=== PATIENT | male | born 1940 | race Caucasian/White ===

== ENCOUNTER 2017-11-06 17:01 | Emergency (ER) | payer MEDICARE, OTHER ==
[~2017-11-06] VITALS: Ht 182.9 cm; Wt 77.5 kg
[2017-11-06] MEDS ORDERED: HYDROcodone/APAP 5/325 TABLET PO ONE (18:30)
[2017-11-06] MEDS ORDERED: DIPH,PERTUSS(ACELL),TET VAC/PF 0.5 ML IM-VACC ONE ×2 (18:30→19:02)
[2017-11-06] MEDS ORDERED: HYDROcodone/APAP 5/325 TABLET ONE (19:02)
[2017-11-06] MEDS ORDERED: BACITRACIN ZINC OINT 500U/GM, 0.9 GM ONE (19:21)
[2017-11-06 20:15] VITALS: BP 163/87
== END 2017-11-06 21:07 | disposition home or self-care (01) ==
LOC: ED 21:01
DX: S59.291A Other physeal fracture of lower end of radius, right arm, initial encounter for closed fracture (principal); S00.81XA Abrasion of other part of head, initial encounter; I10 Essential (primary) hypertension; W10.8XXA Fall (on) (from) other stairs and steps, initial encounter; Y93.89 Activity, other specified; Y92.098 Other place in other non-institutional residence as the place of occurrence of the external cause; Y99.8 Other external cause status
CPT/HCPCS: 70450; 72125; 90471; 90715

== ENCOUNTER 2020-03-03 11:54 | Inpatient (IN) | payer OTHER ==
[~2020-03-03] VITALS: Ht 182.9 cm; Wt 76.7 kg
--- NOTE | 2020-03-03 12:09 | NUR ---
PT BIB BY [facility] FOR BILAT FOOT PAIN AND SWELLING. PT SAYS "IT HURTS TO STAND ON MY FEET AND WALK. I COULDNT GET OFF MY COUCH THIS MORNING". PT DENIES ANY CARDIAC OR KIDNEY HISTORY. HX: PARKINSONS, HTN EKG COMPLETE. PT CONNECTED TO TILE GRINDER AND PULSE OX
[2020-03-03 12:26] LABS: BASOPHILS # (AUTO) 0.01 x10^3/uL (0-0.1); BASOPHILS % (AUTO) 0 % (0-1); EOSINOPHILS # (AUTO) 0.04 x10^3/uL (0-0.4); EOSINOPHILS % (AUTO) 1 % (1-7); LYMPHOCYTES # (AUTO) 0.86 x10^3/uL (1-3.4); LYMPHOCYTES % (AUTO) 11 % (22-44); MD NO; MEAN CORPUSCULAR HEMOGLOBIN 30.5 pg (27.5-34.5); MEAN CORPUSCULAR HGB CONC 33.1 g/dL (33.2-36.2); MEAN CORPUSCULAR VOLUME 92.2 fL (81-97); MEAN PLATELET VOLUME 7.6 fL (7.4-10.4); MONOCYTES # (AUTO) 0.81 x10^3/uL (0.2-0.8); MONOCYTES % (AUTO) 10 % (2-9); NEUTROPHILS # (AUTO) 6.23 x10^3/uL (1.8-6.8); NEUTROPHILS % (AUTO) 78 % (42-75); PLATELET COUNT 243 x10^3/uL (130-400); RED BLOOD COUNT 4.09 x10^6/uL (4.38-5.82); RED CELL DISTRIBUTION WIDTH 15.5 % (9.4-14.8)
--- NOTE | 2020-03-03 12:31 | NUR ---
pt need to reposition for the US exam - still waiting for help - Us delay
[2020-03-03 12:38] LABS: ALBUMIN 3.4 g/dL (3.4-5.0); ANION GAP 4 mmol/L (5-15); CALCIUM 8.7 mg/dL (8.5-10.1); CHLORIDE 107 mmol/L (98-107)
[2020-03-03 12:44] LABS: ALANINE AMINOTRANSFERASE 47 U/L (12-78); ALKALINE PHOSPHATASE 80 U/L (45-117); BILIRUBIN,TOTAL 0.6 mg/dL (0.2-1.0); CREATININE 1.18 mg/dL (0.7-1.3); TOTAL PROTEIN 6.9 g/dL (6.4-8.2); TROPONIN I < 0.015 ng/mL (0.000-0.045)
[2020-03-03] MEDS ORDERED: FUROSEMIDE 40 MG/4 ML IV ONE (13:00)
--- NOTE | 2020-03-03 13:08 | NUR ---
RN IS IN WITH TECH HELPING REPOSITION PT
[2020-03-03] MEDS ORDERED: FUROSEMIDE 20 MG/2 ML ONE (13:09)
[2020-03-03] MEDS ORDERED: ONDANSETRON ODT 4 MG PO PRN (13:30)
[2020-03-03] MEDS ORDERED: ONDANSETRON 2MG/ML, 2ML IVPush PRN (13:30)
--- NOTE | 2020-03-03 13:42 | NUR ---
PT RESTING IN [facility]. URINAL PROVIDED. EDUCATED ON PLAN OF CARE
[2020-03-03] MEDS ORDERED: LISINOPRIL (13:43)
--- NOTE | 2020-03-03 14:01 | NUR ---
THROUGHPUT: TRANSFER DECLINED BY TIFFANY ([facility]) & NICOLETTE ([facility]), [employer] FAXED, EMAIL SENT & PSN PLACED IN FOLDER WITH FAX CONFIRMATION.
[2020-03-03 15:52] VITALS: BP 164/89
[2020-03-03] MEDS: ENOXAPARIN 40 MG/0.4 ML SQ SCH (16:46)
[2020-03-03 18:12] VITALS: BP 179/75
[2020-03-03] MEDS: CARVEDILOL 6.25 MG TABLET PO SCH (18:14)
[2020-03-03] MEDS ORDERED: FURO40TA6 PO (19:39)
[2020-03-03] MEDS ORDERED: RASA1TAB PO (19:39)
[2020-03-03] MEDS ORDERED: CARB1TAB22 PO (19:39)
[2020-03-03] MEDS ORDERED: LISI10TA2 PO (19:39)
[2020-03-03] MEDS ORDERED: TRAZ300T2 PO (19:39)
[2020-03-03] MEDS ORDERED: POTA99TA24 PO (19:39)
[2020-03-03 19:49] VITALS: BP 156/85
[2020-03-03 20:30] VITALS: BP 158/81
[2020-03-03 21:34] VITALS: BP 156/85
[2020-03-04 00:40] VITALS: BP 154/87
[2020-03-04] MEDS: ACETAMINOPHEN 325 MG TABLET PO PRN ×2 (00:48→09:53)
[2020-03-04] MEDS ORDERED: DIPHENHYDRAMINE 25 MG CAPSULE PO ONE (01:00)
[2020-03-04 05:10] VITALS: BP_SYST 128; BP_SYST 137; BP_DIAS 56; BP_DIAS 62
[2020-03-04] MEDS: CARVEDILOL 6.25 MG TABLET PO SCH ×2 (05:12→21:00)
[2020-03-04 06:22] LABS: BASOPHILS % (AUTO) 0 % (0-1); EOSINOPHILS # (AUTO) 0.02 x10^3/uL (0-0.4); EOSINOPHILS % (AUTO) 0 % (1-7); LYMPHOCYTES # (AUTO) 0.98 x10^3/uL (1-3.4); LYMPHOCYTES % (AUTO) 8 % (22-44); MD NO; MEAN CORPUSCULAR HEMOGLOBIN 30.5 pg (27.5-34.5); MEAN CORPUSCULAR VOLUME 92.3 fL (81-97); MEAN PLATELET VOLUME 7.8 fL (7.4-10.4); MONOCYTES # (AUTO) 1.14 x10^3/uL (0.2-0.8); MONOCYTES % (AUTO) 9 % (2-9); NEUTROPHILS # (AUTO) 10.43 x10^3/uL (1.8-6.8); NEUTROPHILS % (AUTO) 83 % (42-75); PLATELET COUNT 232 x10^3/uL (130-400); RED BLOOD COUNT 4.29 x10^6/uL (4.38-5.82); RED CELL DISTRIBUTION WIDTH 14.6 % (9.4-14.8)
[2020-03-04 06:26] LABS: ANION GAP 6 mmol/L (5-15); CALCIUM 8.6 mg/dL (8.5-10.1); CHLORIDE 107 mmol/L (98-107)
[2020-03-04 06:28] LABS: CREATININE 1.07 mg/dL (0.7-1.3)
[2020-03-04 06:45] VITALS: BP 175/83
[2020-03-04 09:51] VITALS: BP 129/73
[2020-03-04 12:18] VITALS: BP 161/70
[2020-03-04] MEDS: CARBIDOPA/LEVODOPA 25 MG/100 MG TABLET PO SCH ×2 (16:00→21:00)
[2020-03-04] MEDS: ENOXAPARIN 40 MG/0.4 ML SQ SCH (16:00)
[2020-03-04] MEDS ORDERED: HALOPERIDOL 5 MG/ML IM PRN (17:00)
[2020-03-04 18:52] LABS: MICROSCOPIC AUTO
[2020-03-04 18:53] LABS: CULTURE INDICATED? NO
[2020-03-04 19:26] LABS: CLOSTRIDIUM DIFFICILE ANTIGEN NEGATIVE; CLOSTRIDIUM DIFFICILE TOXIN NEGATIVE (Negative)
[2020-03-04 20:35] VITALS: BP 155/77
[2020-03-04] MEDS: TRAZODONE 150MG TABLET PO SCH (21:00)
[2020-03-05] VITALS (15 sets, daily range): BP systolic 47–176; BP diastolic 28–82
[2020-03-05] MEDS ORDERED: hydrALAzine 20 MG/ML, 1ML IV ONE (02:30)
[2020-03-05 04:41] LABS: BASOPHILS # (AUTO) 0.01 x10^3/uL (0-0.1); BASOPHILS % (AUTO) 0 % (0-1); EOSINOPHILS # (AUTO) 0.01 x10^3/uL (0-0.4); EOSINOPHILS % (AUTO) 0 % (1-7); LYMPHOCYTES # (AUTO) 1.23 x10^3/uL (1-3.4); LYMPHOCYTES % (AUTO) 12 % (22-44); MD NO; MEAN CORPUSCULAR HEMOGLOBIN 30.4 pg (27.5-34.5); MEAN CORPUSCULAR HGB CONC 32.9 g/dL (33.2-36.2); MEAN CORPUSCULAR VOLUME 92.4 fL (81-97); MEAN PLATELET VOLUME 7.6 fL (7.4-10.4); MONOCYTES # (AUTO) 0.99 x10^3/uL (0.2-0.8); MONOCYTES % (AUTO) 10 % (2-9); NEUTROPHILS # (AUTO) 8.15 x10^3/uL (1.8-6.8); NEUTROPHILS % (AUTO) 78 % (42-75); PLATELET COUNT 236 x10^3/uL (130-400); RED BLOOD COUNT 4.16 x10^6/uL (4.38-5.82); RED CELL DISTRIBUTION WIDTH 14.9 % (9.4-14.8)
[2020-03-05 04:50] LABS: ANION GAP 5 mmol/L (5-15); CALCIUM 8.5 mg/dL (8.5-10.1); CHLORIDE 107 mmol/L (98-107); CREATININE 1.03 mg/dL (0.7-1.3)
[2020-03-05] MEDS: CARBIDOPA/LEVODOPA 25 MG/100 MG TABLET PO SCH ×4 (08:57→21:22)
[2020-03-05] MEDS: FUROSEMIDE 40 MG TABLET PO SCH ×2 (08:58→09:00)
[2020-03-05] MEDS ORDERED: LISINOPRIL 10 MG TABLET PO SCH (09:00)
[2020-03-05] MEDS ORDERED: FUROSEMIDE 20 MG TABLET PO SCH (09:00)
[2020-03-05] MEDS ORDERED: FUROSEMIDE 40 MG TABLET PO SCH (11:30)
[2020-03-05] MEDS: ENOXAPARIN 40 MG/0.4 ML SQ SCH (17:54)
[2020-03-05] MEDS ORDERED: CARVEDILOL 6.25 MG TABLET PO SCH (18:00)
[2020-03-05] MEDS: TRAZODONE 150MG TABLET PO SCH (21:22)
[2020-03-05] MEDS ORDERED: SODIUM CHLORIDE 0.9% 1,000ML IVBOLUS ONE (23:00)
[2020-03-05 23:14] LABS: BASOPHILS # (AUTO) 0.03 x10^3/uL (0-0.1); BASOPHILS % (AUTO) 0 % (0-1); EOSINOPHILS # (AUTO) 0.06 x10^3/uL (0-0.4); EOSINOPHILS % (AUTO) 1 % (1-7); LYMPHOCYTES # (AUTO) 1.57 x10^3/uL (1-3.4); LYMPHOCYTES % (AUTO) 19 % (22-44); MD NO; MEAN CORPUSCULAR HEMOGLOBIN 30.1 pg (27.5-34.5); MEAN CORPUSCULAR HGB CONC 32.4 g/dL (33.2-36.2); MEAN PLATELET VOLUME 7.6 fL (7.4-10.4); MONOCYTES % (AUTO) 12 % (2-9); NEUTROPHILS % (AUTO) 68 % (42-75); PLATELET COUNT 224 x10^3/uL (130-400); RED BLOOD COUNT 3.76 x10^6/uL (4.38-5.82); RED CELL DISTRIBUTION WIDTH 14.8 % (9.4-14.8)
[2020-03-05 23:47] LABS: ALANINE AMINOTRANSFERASE 7 U/L (12-78); ALBUMIN 2.6 g/dL (3.4-5.0); ANION GAP 8 mmol/L (5-15); CALCIUM 7.9 mg/dL (8.5-10.1); CHLORIDE 108 mmol/L (98-107); CREATININE 1.23 mg/dL (0.7-1.3)
[2020-03-05 23:50] LABS: ALKALINE PHOSPHATASE 55 U/L (45-117); BILIRUBIN,TOTAL 0.4 mg/dL (0.2-1.0); TOTAL PROTEIN 5.5 g/dL (6.4-8.2)
[2020-03-06] VITALS (11 sets, daily range): BP systolic 91–119; BP diastolic 51–68
[2020-03-06] MEDS: CARBIDOPA/LEVODOPA 25 MG/100 MG TABLET PO SCH ×4 (08:53→20:45)
[2020-03-06] MEDS ORDERED: LISINOPRIL 40 MG TABLET PO SCH ×2 (09:00)
[2020-03-06] MEDS: ENOXAPARIN 40 MG/0.4 ML SQ SCH (17:31)
[2020-03-06] MEDS: TRAZODONE 150MG TABLET PO SCH (20:45)
[2020-03-07 01:24] VITALS: BP 108/58
[2020-03-07] MEDS: CARBIDOPA/LEVODOPA 25 MG/100 MG TABLET PO SCH ×2 (05:37→10:49)
[2020-03-07 06:08] LABS: BASOPHILS # (AUTO) 0.02 x10^3/uL (0-0.1); BASOPHILS % (AUTO) 0 % (0-1); EOSINOPHILS # (AUTO) 0.12 x10^3/uL (0-0.4); EOSINOPHILS % (AUTO) 2 % (1-7); LYMPHOCYTES % (AUTO) 23 % (22-44); MD NO; MEAN CORPUSCULAR HEMOGLOBIN 30.6 pg (27.5-34.5); MEAN CORPUSCULAR HGB CONC 33.2 g/dL (33.2-36.2); MEAN CORPUSCULAR VOLUME 92.2 fL (81-97); MONOCYTES # (AUTO) 0.65 x10^3/uL (0.2-0.8); MONOCYTES % (AUTO) 11 % (2-9); NEUTROPHILS # (AUTO) 3.61 x10^3/uL (1.8-6.8); NEUTROPHILS % (AUTO) 63 % (42-75); PLATELET COUNT 202 x10^3/uL (130-400); RED BLOOD COUNT 3.83 x10^6/uL (4.38-5.82); RED CELL DISTRIBUTION WIDTH 15.5 % (9.4-14.8)
[2020-03-07 06:09] LABS: ALBUMIN 2.7 g/dL (3.4-5.0); ANION GAP 4 mmol/L (5-15); CALCIUM 8.1 mg/dL (8.5-10.1); CHLORIDE 110 mmol/L (98-107)
[2020-03-07 06:14] LABS: ALANINE AMINOTRANSFERASE 10 U/L (12-78); ALKALINE PHOSPHATASE 55 U/L (45-117); BILIRUBIN,TOTAL 0.4 mg/dL (0.2-1.0); CREATININE 1.11 mg/dL (0.7-1.3); TOTAL PROTEIN 5.9 g/dL (6.4-8.2)
[2020-03-07 07:22] VITALS: BP 151/85
[2020-03-07] MEDS ORDERED: POTASSIUM CHLORIDE 10 MEQ TABLET.ER PO SCH (08:30)
[2020-03-07] MEDS ORDERED: FUROSEMIDE 20 MG TABLET PO SCH (09:00)
[2020-03-07 13:15] VITALS: BP 100/55
== END 2020-03-07 15:08 | disposition home health service (06) | DRG 948 ==
LOC: ED 12:29 → EDIP 13:02 → 4EST 15:25
PROVIDERS: ADMIT Internal Medicine; ATTEND Internal Medicine
DX: R60.0 Localized edema (principal); I10 Essential (primary) hypertension; G20 Parkinson's disease; L57.0 Actinic keratosis; D72.829 Elevated white blood cell count, unspecified; I95.9 Hypotension, unspecified; R79.89 Other specified abnormal findings of blood chemistry
CPT/HCPCS: 36415; 71045; 80048; 80053; 81001; 83605; 83880; 84145; 84484; 85025; 87324; 93005; 93306; 93970; 96372; 96374; 99285; G0378; J1650; J1940; J0360; J7030; Q0163